=== PATIENT | female | born 1980 | race Caucasian/White ===

== ENCOUNTER 2018-03-12 09:08 | Emergency (ER) | payer OTHER ==
[~2018-03-12] VITALS: Ht 154.9 cm; Wt 110.3 kg
[2018-03-12 10:17] LABS: APPEARANCE SL.HAZY ((CLEAR)); BILIRUBIN NEGATIVE; BLOOD NEGATIVE; COLOR YELLOW ((YELLOW)); GLUCOSE (STRIP) NEGATIVE; KETONES NEGATIVE; LEUKOCYTES NEGATIVE; NITRITE NEGATIVE; PROTEIN (STRIP) NEGATIVE; SPECIFIC GRAVITY 1.017 (1.000-1.030); UROBILINOGEN 0.2 MG/DL (0.2-1.0)
[2018-03-12 10:23] LABS: BACTERIA RARE /HPF; EPITHELIAL CELLS 1+ /HPF; HYALINE CASTS 0-5 /LPF; MUCUS 1+ /LPF; RED BLOOD CELLS 0-5 /HPF (0-5); UCUL ADDED? NO; WHITE BLOOD CELLS 0-5 /HPF (0-5)
[2018-03-12] MEDS ORDERED: MEDROL DOSEPAK4 MG PO (10:50)
[2018-03-12] MEDS ORDERED: FLEXERIL10 MG PO (11:21)
[2018-03-12] MEDS ORDERED: SKELAXIN800 MG PO (11:29)
[2018-03-12 11:34] VITALS: BP 130/85
== END 2018-03-12 11:35 | disposition home or self-care (01) ==
LOC: EME 09:08
PROVIDERS: Physician Assistant
DX: M54.16 Radiculopathy, lumbar region (principal); Z90.710 Acquired absence of both cervix and uterus
CPT/HCPCS: 81003; 99281; 99284; J7512

== ENCOUNTER 2018-03-18 08:48 | Emergency (ER) | payer OTHER ==
[~2018-03-18] VITALS: Ht 154.9 cm; Wt 108.3 kg
[~2018-03-18 08:48] MED LIST: FLEXERIL10 MG PO; MEDROL DOSEPAK4 MG PO; SKELAXIN800 MG PO
[2018-03-18 09:55] LABS: BILIRUBIN NEGATIVE; BLOOD NEGATIVE; COLOR YELLOW ((YELLOW)); GLUCOSE (STRIP) NEGATIVE; KETONES NEGATIVE; LEUKOCYTES NEGATIVE; NITRITE NEGATIVE; PROTEIN (STRIP) NEGATIVE; SPECIFIC GRAVITY 1.028 (1.000-1.030); UROBILINOGEN 0.2 MG/DL (0.2-1.0)
[2018-03-18 09:56] LABS: APPEARANCE CLEAR ((CLEAR)); UCUL ADDED? NO
[2018-03-18] MEDS ORDERED: TRAMADOL HCL50 MG PO (10:12)
[2018-03-18] MEDS ORDERED: PREDNISONE20 MG PO (10:12)
[2018-03-18 10:34] VITALS: BP 128/79
== END 2018-03-18 10:50 | disposition home or self-care (01) ==
LOC: EME 08:48
PROVIDERS: Emergency Medicine
DX: M54.41 Lumbago with sciatica, right side (principal)
CPT/HCPCS: 81003; 99281; 99284; J7512